=== PATIENT | male | born 1985 | race Caucasian/White ===

== ENCOUNTER 2016-10-07 13:57 | Emergency (ER) | payer MEDICARE, OTHER ==
[~2016-10-07] VITALS: Ht 182.9 cm; Wt 90.0 kg
[~2016-10-07 13:57] MED LIST: CLON1TAB PO; HYDR-3583 PO; LEVEMIR SQ; MIRA33504 PO; NOVOLOGP2 SQ
[2016-10-07 13:58] VITALS: BP 141/90; PULSE 81; RESP 15; TEMP 98.1; O2SAT 99
--- NOTE | 2016-10-07 14:50 | PD ---
HPI Chief Complaint: Pain: Acute or Chronic Time Seen by Provider: 14:47 Travel History International Travel<30 days: No Contact w/Intl Traveler<30days: No Traveled to known affect area: No History of Present Illness HPI Patient comes in complaining of localized lumbar back pain status post facet joint injections done yesterday by Dr. Le his pain management doctor. Patient states he felt fine last night only having a little discomfort from the injections however when he awoke this morning he started having a a sharp stabbing pain at the site of the injection that is worse with movement. Patient denies any loss or change in bowel or bladder, numbness or tingling anywhere, fevers, IV drug use, trauma, or radiation of the pain. Patient states he contacted Dr. Le's office who recommended he come to the emergency department for further treatment and evaluation. Patient states she is on hydrocodone for his back pain however he states this does not work for him and he tried talking to Dr. Le about this. PFSH Past Medical History Diabetes: Yes Neurologic: Yes Seizures: Yes Past Surgical History Other Surgery: Yes (craniotomy r/t TBI, vena cava filter ) Social History Alcohol Use: No Tobacco Use: Yes Substance Use: No Allergies-Medications (Allergen,Severity, Reaction): Coded Allergies: Reglan (Verified Allergy, Severe, AGITATION, 10/07/16) Reported Meds & Prescriptions Reported Meds & Active Scripts Active Reported Hydrocodone-Acetaminophen 10-325 mg Tab 1 Tab PO Q6H PRN Clonazepam 1 Mg Tab 1 Mg PO TID Miralax Powder (Polyethylene Glycol 3350 Powder) 17 Gm Powd 17 Gm PO DAILY Mix and dissolve one measuring cap-ful (17 grams) in water or juice. Levemir Inj (Insulin Detemir) 1,000 unit/ 10 ML Vial 49 Units SQ HS Do not mix with any other Insulin. Novolog Inj (Insulin Aspart) 1,000 Unit/10 Ml Vial 0 SQ DIRECTED Sliding Scale as directed. Review of Systems Except as stated in HPI: all other systems reviewed are Neg Physical Exam Narrative GENERAL: Well-developed, overly nourished, in no acute distress, and non-ill appearing. SKIN: Warm and dry. HEAD: Atraumatic. Normocephalic. EYES: Pupils equal and round. EOMI. No scleral icterus. No injection or drainage. ENT: No nasal bleeding or discharge. Mucous membranes pink and moist. NECK: Trachea midline. Supple. No nuclear rigidity. RESPIRATORY: No accessory muscle use. No respiratory distress. GASTROINTESTINAL: Abdomen soft, non-tender, nondistended. Hepatic and splenic margins not palpable. No pulsatile mass. MUSCULOSKELETAL: No obvious deformities. No clubbing. No cyanosis. No edema. Full range of motion. Patient reports point tenderness right paravertebral spinal muscles and lumbar spine approximately L3. There is no tenderness or crepitus or midline lumbar spine. Patient reports increased pain with straight leg test on the right. Patient is able to ambulate normally and bear full weight. NEUROLOGICAL: Awake and alert. No obvious cranial nerve deficits. Motor grossly within normal limits. Normal speech. PSYCHIATRIC: Appropriate mood and affect; insight and judgment normal. Data Data Last Documented VS Vital Signs Date Time Temp Pulse Resp B/P Pulse Ox O2 Delivery O2 Flow Rate FiO2 10/07/16 13:58 98.1 81 15 141/90 99 MDM Medical Decision Making Medical Screen Exam Complete: Yes Emergency Medical Condition: Yes Differential Diagnosis Acute on chronic back pain, fracture, strain, other Narrative Course The patient presented complaining of back pain. There was no history of recent fall or trauma. There was no evidence to support genitourinary etiology. There is also no evidence to suggest vascular pathology such as AAA dissection. No fevers or other evidence to suspect infectious processes, abscess, osteomyelitis etc. The patients neurological exam is normal with normal motor and sensory. There is no saddle paresthesias reported and no bowel or bladder incontinence or retention. I suspect the pain is mechanical in nature. Clinical suspicion, plan of care and management was discussed with the patient. The patient was instructed to follow up with Dr. Le. The patient was also instructed to return if the pain worsened, changed, or developed weakness or bowel or bladder trouble. The patient agreed with plan. Patient in no obvious distress upon re-evaluation. I discussed with patient Dr. Le recommended he take his hydrocodone as prescribed for his pain did not recommend any additional testing or change in patient's medications on the emergency department. Any questions/concerns in reference to patient diagnosis/ condition discussed and clarified prior to patient's discharge. Reinforced sheer importance of close follow up with patient's primary physician or primary care clinic. Instructed patient to return to ED immediately, if symptoms return/ worsen. Pt showed understanding of above instructions. Further instructions and recommendations were detailed in discharge paperwork. Pt ambulated without difficulty out of ED at discharge. Physician Communication Physician Communication [phone] I discussed patient with Dr. Le, who states he did not send the patient to the emergency department and the patient has hydrocodone at home he can take for the pain and does not recommend doing anything additional in emergency Department as he just saw the patient in his office approximately one hour ago. Dr. Le reports patient was requesting Percocet when he was in his office. Diagnosis Primary Impression: Back pain Qualified Code: M54.5 - Chronic right-sided low back pain without sciatica Patient Instructions: Chronic Back Pain (ED), General Instructions Additional Instructions: Follow-up with your primary care physician and your pain management doctor as scheduled. Return to the emergency department if symptoms get worse. Disposition: 01 DISCHARGE HOME Condition: Stable Haim Fink Oct 07, 2016 14:50
== END 2016-10-07 19:58 | disposition home or self-care (01) ==
LOC: NEPB 13:57
DX: M54.5 Low back pain (principal); G89.29 Other chronic pain; Z72.0 Tobacco use
CPT/HCPCS: 99282

== ENCOUNTER 2016-10-26 19:08 | Emergency (ER) | payer MEDICARE, OTHER ==
[~2016-10-26] VITALS: Ht 182.9 cm; Wt 87.0 kg
[2016-10-26 19:18] VITALS: BP 129/67; PULSE 98; RESP 18; TEMP 97.6; O2SAT 95
[2016-10-26] MEDS ORDERED: LEXA20TA PO (19:24)
[2016-10-26] MEDS ORDERED: SODIUM CHLOR 0.9% 1000 ML INJ 1,000 ML IV ONE (19:39)
[2016-10-26] MEDS ORDERED: SODIUM CHLORIDE 0.9% FLUSH 5 ML FLUSH IVF PRN (19:45)
[2016-10-26 20:04] VITALS: RESP 18; O2SAT 97
[2016-10-26 20:14] LABS: AUTOMATED NEUTROPHIL # 5.5 TH/MM3 (1.8-7.7); BASOPHIL # 0.1 TH/MM3 (0-0.2); BASOPHIL % 0.6 % (0.0-2.0); EOSINOPHIL # 0.1 TH/MM3 (0-0.4); EOSINOPHIL % 0.6 % (0.0-4.0); HEMATOCRIT 44.4 % (39.0-51.0); HEMO FLAGS DIFF FINAL; LYMPH % 40.6 % (9.0-44.0); LYMPHOCYTE # 4.3 TH/MM3 (1.0-4.8); MEAN CELL VOLUME 82.7 FL (80.0-100.0); MEAN CORPUSCULAR HEMOGLOBIN 29.7 PG (27.0-34.0); MEAN CORPUSCULAR HGB CONC 35.9 % (32.0-36.0); MONO % 6.1 % (0.0-8.0); NEUT % 52.1 % (16.0-70.0); PLATELET COUNT 315 TH/MM3 (150-450); RED BLOOD COUNT 5.37 MIL/MM3 (4.50-5.90); RED CELL DISTRIBUTION WIDTH 13.6 % (11.6-17.2); WHITE BLOOD COUNT 10.5 TH/MM3 (4.0-11.0)
--- NOTE | 2016-10-26 20:25 | RADRPT ---
EXAM DATE/TIME: 10/26/2016 19:59 [facility] COMPARISON: No previous studies available for comparison. INDICATIONS : Possible seizure today; left eye swelling and nasion pain. RADIATION DOSE: 32.19 CTDIvol (mGy) MEDICAL HISTORY : Seizures. TBI SURGICAL HISTORY : Craniotomy. ENCOUNTER: Initial ACUITY: 1 day PAIN SCALE: 5/10 LOCATION: cranial TECHNIQUE: Multiple contiguous axial images were obtained of the head. Using automated exposure control and adj ustment of the mA and/or kV according to patient size, radiation dose was kept as low as reasonably a chievable to obtain optimal diagnostic quality images. FINDINGS: CEREBRUM: The ventricles are normal for age. No evidence of midline shift, mass lesion, hemorrhage or acute in farction. No extra-axial fluid collections are seen. POSTERIOR FOSSA: The cerebellum and brainstem are intact. The 4th ventricle is midline. The cerebellopontine angle i s unremarkable. EXTRACRANIAL: The visualized portion of the orbits is intact. SKULL: The calvaria is intact. No evidence of skull fracture. The patient is status post left frontal parie daniel craniotomy. CONCLUSION: 1. No acute hemorrhage or mass effect. 2. Status post left frontal parietal craniotomy. Cyril Pedroza MD on October 26, 2016 at 20:22 Board Certified Radiologist. This report was verified electronically.
--- NOTE | 2016-10-26 20:27 | RADRPT ---
EXAM DATE/TIME: 10/26/2016 19:59 [facility] COMPARISON: No previous studies available for comparison. INDICATIONS : Possible seizure today; left eye swelling and nasion pain. RADIATION DOSE: 60.37 CTDIvol (mGy) MEDICAL HISTORY : Seizures. TBI SURGICAL HISTORY : Craniotomy. ENCOUNTER: Initial ACUITY: 1 day PAIN SCORE: 4/10 LOCATION: facial TECHNIQUE: Volumetric scanning of the facial bones was performed. Using automated exposure control and adjustme nt of the mA and/or kV according to patient size, radiation dose was kept as low as reasonably achiev able to obtain optimal diagnostic quality images. FINDINGS: ORBITS: The orbital and infraorbital osseous structures are intact. The retroconal structures have a normal configuration. No radiopaque foreign bodies are seen. NASAL BONE: The nasal bone and maxillary spine are intact ZYGOMATIC ARCHES: Symmetric without evidence of fracture. SINUSES: The right maxillary sinus is completely opacified. NASAL CAVITY: The nasal septum is intact and midline. The lacrimal ducts are intact. SOFT TISSUES: No radiopaque foreign bodies seen. There is soft tissue swelling over the nasal bone. INTRACRANIAL: No intracranial air seen. CRIBIFORM PLATE: Grossly intact. CONCLUSION: 1. Soft tissue swelling over the nasal bones with no evidence of acute fracture. 2. Opacification of right maxillary sinus which appears chronic. Cyril Pedroza MD on October 26, 2016 at 20:23 Board Certified Radiologist. This report was verified electronically.
[2016-10-26 20:40] LABS: BICARBONATE 26.6 MEQ/L (21.0-32.0); BLOOD UREA NITROGEN 14 MG/DL (7-18); CHLORIDE 101 MEQ/L (98-107); GLOMERULAR FILTRATION RATE 99 ML/MIN (>89); POTASSIUM 3.3 MEQ/L (3.5-5.1); SODIUM (NA) 137 MEQ/L (136-145)
[2016-10-26 20:41] LABS: ANION GAP 9 MEQ/L (5-15)
[2016-10-26] MEDS ORDERED: KETOROLAC TROMETHAMINE 30 MG/ML (IVP) VIAL IV PUSH ONE (20:45)
--- NOTE | 2016-10-26 21:04 | PD ---
HPI Chief Complaint: Seizure Time Seen by Provider: 19:30 Travel History International Travel<30 days: No Contact w/Intl Traveler<30days: No Traveled to known affect area: No History of Present Illness HPI 31yo M with PMH of seizure disorder on lamotrigine 450mg nightly, traumatic brain injury presents to the ED with c/o having an awake seizure today. States he was sitting in bed and then was shaking everywhere and had an awake seizure. Pt did hit his right face and nose on bedside table. Remembers everything and lasted 60 seconds. Denies any fever, chest pain, sob, n/v, abdominal pain, focal weakness or numbness. States he is compliant with medications and follows with Dr. Avina. States he also takes klonopin for anxiety. PFSH Past Medical History Diabetes: Yes Patient Takes Glucophage: No Neurologic: Yes Seizures: Yes Tetanus Vaccination: < 5 Years Influenza Vaccination: Yes Past Surgical History Other Surgery: Yes (craniotomy r/t TBI, vena cava filter ) Social History Alcohol Use: No Tobacco Use: Yes (1/2 PPD) Substance Use: No Allergies-Medications (Allergen,Severity, Reaction): Coded Allergies: Reglan (Verified Allergy, Severe, AGITATION, 10/26/16) Reported Meds & Prescriptions Reported Meds & Active Scripts Active Acetaminophen Extra Strength (Acetaminophen) 500 Mg Tab 500 Mg PO Q6H PRN Reported Lexapro (Escitalopram Oxalate) 20 Mg Tab 20 Mg PO DAILY Hydrocodone-Acetaminophen 10-325 mg Tab 1 Tab PO Q6H PRN Clonazepam 1 Mg Tab 1 Mg PO TID Miralax Powder (Polyethylene Glycol 3350 Powder) 17 Gm Powd 17 Gm PO DAILY Mix and dissolve one measuring cap-ful (17 grams) in water or juice. Levemir Inj (Insulin Detemir) 1,000 unit/ 10 ML Vial 49 Units SQ HS Do not mix with any other Insulin. Novolog Inj (Insulin Aspart) 1,000 Unit/10 Ml Vial 0 SQ DIRECTED Sliding Scale as directed. Review of Systems Except as stated in HPI: all other systems reviewed are Neg Physical Exam Narrative GENERAL: 31yo M not in distress. SKIN: Warm and dry. HEAD: Atraumatic. Normocephalic. +TTP right maxilla and nasal bone. EYES: Pupils equal and round at 3mm bilaterally. EOMI. No scleral icterus. No injection or drainage. ENT: No nasal bleeding or discharge. Mucous membranes pink and moist. NECK: Trachea midline. No JVD. CARDIOVASCULAR: Regular rate and rhythm. No murmur appreciated. RESPIRATORY: No accessory muscle use. Clear to auscultation. Breath sounds equal bilaterally. GASTROINTESTINAL: Abdomen soft, non-tender, nondistended. No rebound tenderness or guarding. MUSCULOSKELETAL: No obvious deformities. No clubbing. No cyanosis. No edema. NEUROLOGICAL: Awake and alert. No obvious cranial nerve deficits. Motor grossly within normal limits. Normal speech. Data Data Last Documented VS Vital Signs Date Time Temp Pulse Resp B/P Pulse Ox O2 Delivery O2 Flow Rate FiO2 10/26/16 21:25 14 10/26/16 20:04 97 Room Air 10/26/16 19:21 98 10/26/16 19:18 97.6 129/67 Orders Complete Blood Count With Diff (10/26/16 19:39) Basic Metabolic Panel (Bmp) (10/26/16 19:39) Alcohol (Ethanol) (10/26/16 19:39) Electrocardiogram (10/26/16 ) Ct Brain W/O Iv Contrast(Rout) (10/26/16 ) Blood Glucose (10/26/16 19:39) Ecg Monitoring (10/26/16 19:39) Iv Access Insert/Monitor (10/26/16 19:39) Oximetry (10/26/16 19:39) Sodium Chlor 0.9% 1000 Ml Inj (Ns 1000 M (10/26/16 19:39) Sodium Chloride 0.9% Flush (Ns Flush) (10/26/16 19:45) Ct Facial Bones W/O Iv Cont (10/26/16 ) Ketorolac Inj (Toradol Inj) (10/26/16 20:45) Labs Laboratory Tests Test 10/26/16 19:15 White Blood Count 10.5 TH/MM3 Red Blood Count 5.37 MIL/MM3 Hemoglobin 15.9 GM/DL Hematocrit 44.4 % Mean Corpuscular Volume 82.7 FL Mean Corpuscular Hemoglobin 29.7 PG Mean Corpuscular Hemoglobin 35.9 % Concent Red Cell Distribution Width 13.6 % Platelet Count 315 TH/MM3 Mean Platelet Volume 7.6 FL Neutrophils (%) (Auto) 52.1 % Lymphocytes (%) (Auto) 40.6 % Monocytes (%) (Auto) 6.1 % Eosinophils (%) (Auto) 0.6 % Basophils (%) (Auto) 0.6 % Neutrophils # (Auto) 5.5 TH/MM3 Lymphocytes # (Auto) 4.3 TH/MM3 Monocytes # (Auto) 0.6 TH/MM3 Eosinophils # (Auto) 0.1 TH/MM3 Basophils # (Auto) 0.1 TH/MM3 CBC Comment DIFF FINAL Differential Comment Sodium Level 137 MEQ/L Potassium Level 3.3 MEQ/L Chloride Level 101 MEQ/L Carbon Dioxide Level 26.6 MEQ/L Anion Gap 9 MEQ/L Blood Urea Nitrogen 14 MG/DL Creatinine 0.89 MG/DL Estimat Glomerular Filtration 99 ML/MIN Rate Random Glucose 157 MG/DL Calcium Level 8.9 MG/DL Ethyl Alcohol Level LESS THAN 3 MG/DL MDM Medical Decision Making Medical Screen Exam Complete: Yes Emergency Medical Condition: Yes Interpretation(s) Laboratory Tests Test 10/26/16 19:15 White Blood Count 10.5 TH/MM3 (4.0-11.0) Red Blood Count 5.37 MIL/MM3 (4.50-5.90) Hemoglobin 15.9 GM/DL (13.0-17.0) Hematocrit 44.4 % (39.0-51.0) Mean Corpuscular Volume 82.7 FL (80.0-100.0) Mean Corpuscular Hemoglobin 29.7 PG (27.0-34.0) Mean Corpuscular Hemoglobin 35.9 % Concent (32.0-36.0) Red Cell Distribution Width 13.6 % (11.6-17.2) Platelet Count 315 TH/MM3 (150-450) Mean Platelet Volume 7.6 FL (7.0-11.0) Neutrophils (%) (Auto) 52.1 % (16.0-70.0) Lymphocytes (%) (Auto) 40.6 % (9.0-44.0) Monocytes (%) (Auto) 6.1 % (0.0-8.0) Eosinophils (%) (Auto) 0.6 % (0.0-4.0) Basophils (%) (Auto) 0.6 % (0.0-2.0) Neutrophils # (Auto) 5.5 TH/MM3 (1.8-7.7) Lymphocytes # (Auto) 4.3 TH/MM3 (1.0-4.8) Monocytes # (Auto) 0.6 TH/MM3 (0-0.9) Eosinophils # (Auto) 0.1 TH/MM3 (0-0.4) Basophils # (Auto) 0.1 TH/MM3 (0-0.2) CBC Comment DIFF FINAL Differential Comment Sodium Level 137 MEQ/L (136-145) Potassium Level 3.3 MEQ/L (3.5-5.1) Chloride Level 101 MEQ/L (98-107) Carbon Dioxide Level 26.6 MEQ/L (21.0-32.0) Anion Gap 9 MEQ/L (5-15) Blood Urea Nitrogen 14 MG/DL (7-18) Creatinine 0.89 MG/DL (0.60-1.30) Estimat Glomerular Filtration 99 ML/MIN (>89) Rate Random Glucose 157 MG/DL (74-106) Calcium Level 8.9 MG/DL (8.5-10.1) Ethyl Alcohol Level LESS THAN 3 MG/DL (0-5) Last Impressions Maxillofacial CT 10/26/16 0000 Signed Impressions: Service Date/Time: Wednesday, October 26, 2016 19:59 - CONCLUSION: 1. Soft tissue swelling over the nasal bones with no evidence of acute fracture. 2. Opacification of right maxillary sinus which appears chronic. Cyril Pedroza MD Head CT 10/26/16 0000 Signed Impressions: Service Date/Time: Wednesday, October 26, 2016 19:59 - CONCLUSION: 1. No acute hemorrhage or mass effect. 2. Status post left frontal parietal craniotomy. Cyril Pedroza MD Differential Diagnosis Nasal bone fracture vs. pseudoseizure vs. partial seizure vs. electrolyte abnormality Narrative Course 31yo well appearing M with h/o seizure s/p traumatic brain injury here with an episode of seizure that he was awake. Labs reviewed, no leukocytosis. K: 3.3. Pt tolerating PO and does not want oral replacement now. Alcohol negative. CT brain showed no acute hemorrhage. Status post left frontal parietal craniotomy. CT maxillofacial showed soft tissue swelling over nasal bone with no acute fracture. Pt given toradol for pain and advised to follow up with his neurologist Dr. Kay. VS stable. Pt became upset that I am not giving him narcotics for pain and ripped out his own IV catheter prior to obtaining his discharge papers. I explain to him that I do not feel narcotic pain medication is indicated now. Diagnosis Primary Impression: Seizure Patient Instructions: General Instructions Departure Forms: Tests/Procedures Additional Instructions: Please follow up with your neurologist in 1-2 days. Return to the ED if symptoms worsen. Med/Other Pt SpecificInfo: Prescription(s) given, No Change to Meds Scripts Acetaminophen (Acetaminophen Extra Strength)500 Mg [id number] Mg PO Q6H PRN (PAIN SCALE 1 TO 4) #20 TAB Ref 0 Prov:Arabella Hair DO 10/26/16 Disposition: 01 DISCHARGE HOME Condition: Stable Arabella Hair DO Oct 26, 2016 21:04
[2016-10-26 21:25] VITALS: RESP 14
[2016-10-26] MEDS ORDERED: ACET500T36 PO (21:45)
--- NOTE | 2016-10-27 20:01 | EKG ---
Date Performed: 10/26/2016 Time Performed: 20:45:36 PTAGE: 31 years EKG: Sinus rhythm NORMAL ECG NO PREVIOUS TRACING DOCTOR: Mercy Betancourt Interpretating Date/Time 10/27/2016 20:00:04
== END 2016-10-26 21:51 | disposition home or self-care (01) ==
LOC: NEPA 19:08
DX: R56.9 Unspecified convulsions (principal); E11.9 Type 2 diabetes mellitus without complications; F17.210 Nicotine dependence, cigarettes, uncomplicated
CPT/HCPCS: 70450; 70486; 80048; 80307; 85025; 93005; 96361; 96374; 99284; J1885; J7030

== ENCOUNTER 2016-11-23 16:23 | Emergency (ER) | payer MEDICARE, OTHER ==
[~2016-11-23] VITALS: Ht 182.9 cm; Wt 93.0 kg
[~2016-11-23 16:23] MED LIST changes: +ACET500T36 PO; +LEXA20TA PO
[2016-11-23 16:25] VITALS: BP 120/85; PULSE 132; RESP 20; TEMP 98.7; O2SAT 97
--- NOTE | 2016-11-23 16:29 | PD ---
Physical Exam Time Seen by Provider: 16:27 Narrative 31 year old male with recent facet joint injections in past few weeks presents with lower back/ sacral pain. Hurts to move. +chills. Vital signs reviewed. Tachycardic. Seen at triage desk. Awaiting bed placement. Data Data Last Documented VS Vital Signs Date Time Temp Pulse Resp B/P Pulse Ox O2 Delivery O2 Flow Rate FiO2 11/23/16 16:25 98.7 132 20 120/85 97 Room Air [facility] Medical Record Reviewed: Yes Supervised Visit with JULIO CESAR: Yes Memo Bhat Nov 23, 2016 16:29
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
[2016-11-23] MEDS ORDERED: ONDANSETRON HCL 4 MG/2 ML VIAL IV PUSH ONE (17:15)
[2016-11-23] MEDS ORDERED: MORPHINE SULFATE 4 MG/ML INJ IV PUSH ONE ×2 (17:15→19:00)
[2016-11-23 18:00] VITALS: BP 123/86; PULSE 105; RESP 16; O2SAT 96
[2016-11-23 18:26] LABS: AUTOMATED NEUTROPHIL # 6.2 TH/MM3 (1.8-7.7); BASOPHIL # 0.1 TH/MM3 (0-0.2); BASOPHIL % 0.8 % (0.0-2.0); EOSINOPHIL # 0.1 TH/MM3 (0-0.4); EOSINOPHIL % 1.1 % (0.0-4.0); HEMATOCRIT 48.1 % (39.0-51.0); HEMO FLAGS DIFF FINAL; LYMPH % 34.3 % (9.0-44.0); LYMPHOCYTE # 3.7 TH/MM3 (1.0-4.8); MEAN CELL VOLUME 83.1 FL (80.0-100.0); MEAN CORPUSCULAR HEMOGLOBIN 28.9 PG (27.0-34.0); MEAN CORPUSCULAR HGB CONC 34.8 % (32.0-36.0); MONO % 5.9 % (0.0-8.0); NEUT % 57.9 % (16.0-70.0); PLATELET COUNT 309 TH/MM3 (150-450); RED BLOOD COUNT 5.79 MIL/MM3 (4.50-5.90); RED CELL DISTRIBUTION WIDTH 13.6 % (11.6-17.2); WHITE BLOOD COUNT 10.8 TH/MM3 (4.0-11.0)
[2016-11-23 18:54] LABS: POTASSIUM 3.9 MEQ/L (3.5-5.1)
[2016-11-23] MEDS ORDERED: GADODIAMIDE PF 287 MG/ML 20 ML VIAL (for RAD MRI) IV ONE (20:01)
--- NOTE | 2016-11-23 20:26 | RADRPT ---
EXAM DATE/TIME: 11/23/2016 19:12 [facility] COMPARISON: No previous studies available for comparison. INDICATIONS : Back pain with fever. CONTRAST: 18 cc Omniscan (gadodiamide) IV MEDICAL HISTORY : Diabetes mellitus type 2. SURGICAL HISTORY : Craniotomy. IVC Filter placement. Plate in arm. ENCOUNTER: Initial ACUITY: 4-6 days PAIN SCORE: 6/10 LOCATION: back. TECHNIQUE: Multiplanar multisequence MRI of the lumbar spine was performed with and without contrast. FINDINGS: The most caudal appearing lumbar vertebra is numbered as L5. VERTEBRAE: Homogeneous signal. Normal alignment. CONUS: Normal level and configuration. POST CONTRAST: No abnormal areas of contrast enhancement are seen. T12-L1: The thecal sac has a normal diameter. No evidence of disc bulge or protrusion. The neural foramina are patent bilaterally. L1-L2: The thecal sac has a normal diameter. No evidence of disc bulge or protrusion. The neural foramina are patent bilaterally. L2-L3: The thecal sac has a normal diameter. No evidence of disc bulge or protrusion. The neural foramina are patent bilaterally. L3-L4: The thecal sac has a normal diameter. No evidence of disc bulge or protrusion. The neural foramina are patent bilaterally. L4-L5: The thecal sac has a normal diameter. No evidence of disc bulge or protrusion. The neural foramina are patent bilaterally. L5-S1: There is a mild disc bulge which comes in contact with the transiting S1 nerve roots. The right nerve root appears slightly displaced posteriorly with no abnormal signal or enlargement. The neural ousmane alma rosa are patent bilaterally. CONCLUSION: qAnnular disc bulge at L5-S1 which comes in contact with the transiting S1 nerve root. The right nerv e root appears slightly displaced posteriorly with no abnormal signal or enhancement. Cyril Pedroza MD on November 23, 2016 at 20:22 Board Certified Radiologist. This report was verified electronically.
--- NOTE | 2016-11-23 20:37 | RADRPT ---
EXAM DATE/TIME: 11/23/2016 19:12 [facility] COMPARISON: No previous studies available for comparison. INDICATIONS : Back pain with fever. CONTRAST: 18 cc Omniscan (gadodiamide) IV MEDICAL HISTORY : Diabetes mellitus type 2. SURGICAL HISTORY : Craniotomy. IVC Filter placement. Plate in arm. ENCOUNTER: ACUITY: 4-6 days PAIN SCORE: 2/10 LOCATION: neck. TECHNIQUE: Multiplanar, multisequence MRI examination of the cervical spine was performed. FINDINGS: VERTEBRAE: Normal vertebral body height. Homogeneous marrow signal. ALIGNMENT: No evidence of subluxation. CORD: Normal configuration and signal. POST FOSSA: The cerebellar tonsils are normal in position. POST-CONTRAST: No abnormal areas of enhancement are seen. C2-C3: The thecal sac has a normal configuration. There is no evidence of disc herniation or spinal canal stenosis. The neural foramina are patent bilaterally. C3-C4: The thecal sac has a normal configuration. There is no evidence of disc herniation or spinal canal s tenosis. The neural foramina are patent bilaterally. C4-C5: The thecal sac has a normal configuration. There is no evidence of disc herniation or spinal canal s tenosis. The neural foramina are patent bilaterally. C5-C6: The thecal sac has a normal configuration. There is no evidence of disc herniation or spinal canal s tenosis. The neural foramina are patent bilaterally. C6-C7: The thecal sac has a normal configuration. There is no evidence of disc herniation or spinal canal s tenosis. The neural foramina are patent bilaterally. C7-T1: The thecal sac has a normal configuration. There is no evidence of disc herniation or spinal canal s tenosis. The neural foramina are patent bilaterally. CONCLUSION: Unremarkable exam. Cyril Pedroza MD on November 23, 2016 at 20:35 Board Certified Radiologist. This report was verified electronically.
[2016-11-23 21:07] VITALS: BP 119/77; PULSE 98; RESP 16; O2SAT 96
--- NOTE | 2016-11-23 21:30 | RADRPT ---
EXAM DATE/TIME: 11/23/2016 19:12 [facility] COMPARISON: No previous studies available for comparison. INDICATIONS : Back pain with fever. CONTRAST: 18 cc Omniscan (gadodiamide) IV MEDICAL HISTORY : Diabetes mellitus type 2. SURGICAL HISTORY : Craniotomy. IVC Filter placement. Plate in arm. ENCOUNTER: Initial ACUITY: 4-6 days PAIN SCORE: 4/10 LOCATION: back. TECHNIQUE: Multiplanar multisequence MRI of the thoracic spine was performed. FINDINGS: VERTEBRA: Normal vertebral body height. Homogeneous marrow signal. There are mild degenerative changes with de siccation and minimal anterior spurring. ALIGNMENT: Normal. CORD: Normal position and configuration. POST CONTRAST: No abnormal areas of contrast enhancement seen. The axial images demonstrate no evidence of abnormal fluid collection or abscess. There is no abnorma l enhancement. The thoracic cord is normal in size and shape. There are mild disc bulges at the T6-7, T7-8 and T8-9 levels. CONCLUSION: Mild degenerative change and mild disc bulges. Cyril Pedroza MD on November 23, 2016 at 21:26 Board Certified Radiologist. This report was verified electronically.
[2016-11-23] MEDS ORDERED: PERC5TAB12 PO (22:04)
--- NOTE | 2016-11-23 22:05 | PD ---
Data Data Last Documented VS Vital Signs Date Time Temp Pulse Resp B/P Pulse Ox O2 Delivery O2 Flow Rate FiO2 11/23/16 21:07 98 16 119/77 96 Room Air 11/23/16 16:25 98.7 Orders Morphine Inj (Morphine Inj) (11/23/16 17:15) Complete Blood Count With Diff (11/23/16 17:10) Basic Metabolic Panel (Bmp) (11/23/16 17:10) Iv Access Insert/Monitor (11/23/16 17:10) Mri C Spine W&W/O Contrast (11/23/16 ) Mri L Spine W&W/O Contrast (11/23/16 ) Mri T Spine W & W/O Contrast (11/23/16 ) Ondansetron Inj (Zofran Inj) (11/23/16 17:15) Morphine Inj (Morphine Inj) (11/23/16 19:00) Gadodiamide Pf Inj (Omniscan Pf Inj) (11/23/16 20:01) Labs Laboratory Tests Test 11/23/16 18:15 White Blood Count 10.8 TH/MM3 Red Blood Count 5.79 MIL/MM3 Hemoglobin 16.8 GM/DL Hematocrit 48.1 % Mean Corpuscular Volume 83.1 FL Mean Corpuscular Hemoglobin 28.9 PG Mean Corpuscular Hemoglobin 34.8 % Concent Red Cell Distribution Width 13.6 % Platelet Count 309 TH/MM3 Mean Platelet Volume 7.8 FL Neutrophils (%) (Auto) 57.9 % Lymphocytes (%) (Auto) 34.3 % Monocytes (%) (Auto) 5.9 % Eosinophils (%) (Auto) 1.1 % Basophils (%) (Auto) 0.8 % Neutrophils # (Auto) 6.2 TH/MM3 Lymphocytes # (Auto) 3.7 TH/MM3 Monocytes # (Auto) 0.6 TH/MM3 Eosinophils # (Auto) 0.1 TH/MM3 Basophils # (Auto) 0.1 TH/MM3 CBC Comment DIFF FINAL Differential Comment Sodium Level 137 MEQ/L Potassium Level 3.9 MEQ/L Chloride Level 102 MEQ/L Carbon Dioxide Level 26.0 MEQ/L Anion Gap 9 MEQ/L Blood Urea Nitrogen 9 MG/DL Creatinine 0.90 MG/DL Estimat Glomerular Filtration 98 ML/MIN Rate Random Glucose 199 MG/DL Calcium Level 9.2 MG/DL MDM Supervised Visit with JULIO CESAR: Yes Narrative Course I, Dr. Wagner, have reviewed the advance practice practitioner's documentation and am in agreement, met with the patient face to face, made the diagnosis, and the medical decision making was done by me. See her note for further details. Briefly this is a 31-year-old male with chronic back pain, seen by pain management, received corticosteroid injections in his lower back last week, here for evaluation of lower back pain. Pain significantly worsened yesterday evening. On exam the patient has normal range of motion in bilateral lower extremities with great toe extension present bilaterally. No saddle anesthesia. He does have some midline lumbar spine tenderness. He has been ambulating to and from the restroom several times while in the emergency department. Vital signs reviewed. He is afebrile. CBC is unremarkable. BMP is unremarkable. MRI cervical spine: CONCLUSION: Unremarkable exam. MRI thoracic spine: CONCLUSION: Mild degenerative change and mild disc bulges. MRI lumbar spine: CONCLUSION: qAnnular disc bulge at L5-S1 which comes in contact with the transiting S1 nerve root. The right nerve root appears slightly displaced posteriorly with no abnormal signal or enhancement. Case discussed with on-call neurosurgeon Dr. Laird. Patient can be discharged home with outpatient follow-up with his pain management doctor based on his clinical findings and MRI findings. The patient was made aware of all findings. He is requesting pain medication to be discharged home with. I will give him a short course of Percocet. Pain management follow-up this week. He was informed on when to return to the emergency department. He verbalizes understanding and agreement with plan. Diagnosis Primary Impression: Acute exacerbation of chronic low back pain Referrals: Primary Care Physician 3 days Additional Instruction: Follow-up with your primary care physician this week. 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 Return to the emergency department for worsening symptoms or any other concerns. Scripts Oxycodone-Acetaminophen (Percocet)5-325 mg Tab1 Tab PO Q6H PRN (PAIN) #10 TAB Ref 0 Prov:Scot Wagner MD 11/23/16 Disposition: 01 DISCHARGE HOME Condition: Stable Scot Wagner MD Nov 23, 2016 22:04
== END 2016-11-23 22:21 | disposition home or self-care (01) ==
LOC: NEPD 16:23
DX: M54.5 Low back pain (principal); G89.29 Other chronic pain; R50.9 Fever, unspecified; E11.40 Type 2 diabetes mellitus with diabetic neuropathy, unspecified; Z79.4 Long term (current) use of insulin
CPT/HCPCS: 72156; 72157; 72158; 80048; 85025; 96374; 96376; 99284; A9579; J2270

== ENCOUNTER 2016-11-25 11:47 | Emergency (ER) | payer MEDICARE, OTHER ==
[~2016-11-25] VITALS: Ht 182.9 cm; Wt 90.0 kg
[~2016-11-25 11:47] MED LIST changes: -MIRA33504 PO; +PERC5TAB12 PO
[2016-11-25 11:51] VITALS: BP 128/87; PULSE 112; RESP 20; TEMP 97.9; O2SAT 97
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
[2016-11-25] MEDS ORDERED: SODIUM CHLOR 0.9% 1000 ML INJ 1,000 ML IV ONE (12:36)
[2016-11-25 12:42] VITALS: O2SAT 100
[2016-11-25] MEDS ORDERED: KETOROLAC TROMETHAMINE 30 MG/ML (IVP) VIAL IVP ONE (12:45)
[2016-11-25] MEDS ORDERED: SODIUM CHLORIDE 0.9% FLUSH 10 ML FLUSH IVF PRN (12:45)
[2016-11-25] MEDS: diphenhydrAMINE HCL 50 MG/ML VIAL IVP ONE ×2 (12:45→12:50)
[2016-11-25] MEDS ORDERED: PROCHLORPERAZINE INJ 10 MG/2 ML VIAL IVP ONE (12:45)
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
== END 2016-11-25 13:27 | disposition left against medical advice (07) ==
LOC: NEPD 11:47
DX: R51 Headache (principal); H53.149 Visual discomfort, unspecified; E11.9 Type 2 diabetes mellitus without complications; F17.200 Nicotine dependence, unspecified, uncomplicated; Z79.4 Long term (current) use of insulin; Z87.820 Personal history of traumatic brain injury
CPT/HCPCS: 96374; 96375; 99283; J0780; J1885; J7030; J1200

== ENCOUNTER 2016-11-29 22:10 | Emergency (ER) | payer OTHER, MEDICARE ==
[~2016-11-29] VITALS: Ht 182.9 cm; Wt 96.0 kg
[~2016-11-29 22:10] MED LIST changes: -HYDR-3583 PO; -PERC5TAB12 PO
[2016-11-29 22:21] VITALS: BP 138/82; PULSE 106; RESP 16; TEMP 98.7; O2SAT 96
[2016-11-29] MEDS ORDERED: SODIUM CHLOR 0.9% 1000 ML INJ 1,000 ML IV ONE ×2 (22:28→22:58)
[2016-11-29] MEDS ORDERED: SODIUM CHLORIDE 0.9% FLUSH 10 ML FLUSH IVF PRN (22:30)
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
[2016-11-29] MEDS ORDERED: ACETAMINOPHEN/HYDROcodone 325 MG/5 MG TAB PO ONE (23:00)
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
[2016-11-29 23:30] LABS: AUTOMATED NEUTROPHIL # 5.9 TH/MM3 (1.8-7.7); BASOPHIL # 0.1 TH/MM3 (0-0.2); BASOPHIL % 0.8 % (0.0-2.0); EOSINOPHIL # 0.1 TH/MM3 (0-0.4); HEMATOCRIT 43.6 % (39.0-51.0); HEMO FLAGS DIFF FINAL; LYMPHOCYTE # 3.7 TH/MM3 (1.0-4.8); MEAN CELL VOLUME 83.2 FL (80.0-100.0); MEAN CORPUSCULAR HEMOGLOBIN 29.5 PG (27.0-34.0); MEAN CORPUSCULAR HGB CONC 35.5 % (32.0-36.0); MONO % 6.8 % (0.0-8.0); NEUT % 56.4 % (16.0-70.0); PLATELET COUNT 289 TH/MM3 (150-450); RED BLOOD COUNT 5.24 MIL/MM3 (4.50-5.90); RED CELL DISTRIBUTION WIDTH 13.8 % (11.6-17.2); WHITE BLOOD COUNT 10.5 TH/MM3 (4.0-11.0)
[2016-11-29] MEDS ORDERED: MORPHINE SULFATE 8 MG/ML INJ IV PUSH ONE (23:30)
[2016-11-29] MEDS ORDERED: KETOROLAC TROMETHAMINE 30 MG/ML (IVP) VIAL IV PUSH ONE (23:30)
[2016-11-29 23:52] LABS: ANION GAP 9 MEQ/L (5-15); AST (GOT) 16 U/L (15-37); BICARBONATE 25.8 MEQ/L (21.0-32.0); BLOOD UREA NITROGEN 5 MG/DL (7-18); CHLORIDE 103 MEQ/L (98-107); GLOMERULAR FILTRATION RATE 90 ML/MIN (>89); POTASSIUM 3.6 MEQ/L (3.5-5.1); SODIUM (NA) 138 MEQ/L (136-145)
[2016-11-29 23:55] LABS: ALKALINE PHOSPHATASE 96 U/L (45-117); ALT (GPT) 29 U/L (12-78); BETA-HYDROXYBUTYRATE 0.18 MMOL/L (0.00-0.39); TOTAL BILIRUBIN ADULT 0.5 MG/DL (0.2-1.0)
[2016-11-30] MEDS ORDERED: PERC5TAB12 PO (00:02)
[2016-12-01] MEDS ORDERED: METHY5 PO (10:07)
[2016-12-01] MEDS ORDERED: LAMO25 PO (10:07)
== END 2016-11-30 01:03 | disposition home or self-care (01) ==
LOC: NEPD 22:10
DX: S90.819A Abrasion, unspecified foot, initial encounter (principal); M25.532 Pain in left wrist; S09.90XA Unspecified injury of head, initial encounter; E11.9 Type 2 diabetes mellitus without complications; F17.200 Nicotine dependence, unspecified, uncomplicated; V09.9XXA Pedestrian injured in unspecified transport accident, initial encounter
CPT/HCPCS: 70450; 71010; 73090; 73130; 73630; 80053; 82010; 85025; 96374; 96375; 99284; J1885; J2270; J7030

== ENCOUNTER 2016-12-01 09:41 | Emergency (ER) | payer MEDICARE, OTHER ==
[~2016-12-01] VITALS: Ht 182.9 cm; Wt 92.0 kg
[~2016-12-01 09:41] MED LIST changes: +PERC5TAB12 PO
[2016-12-01 09:43] VITALS: BP 137/82; PULSE 94; RESP 20; TEMP 97.8; O2SAT 99
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
[2016-12-01] MEDS ORDERED: METHY5 PO (10:07)
[2016-12-01] MEDS ORDERED: LAMO25 PO (10:07)
== END 2016-12-01 11:21 | disposition left against medical advice (07) ==
LOC: NEPK 09:41
DX: R51 Headache (principal); R11.0 Nausea; E11.9 Type 2 diabetes mellitus without complications; F17.200 Nicotine dependence, unspecified, uncomplicated; Z79.4 Long term (current) use of insulin
CPT/HCPCS: 99283